=== PATIENT | female | born 1960 | race Caucasian/White ===

== ENCOUNTER 2016-08-08 17:22 | Observation (INO) | payer BC ==
--- NOTE | ~2016-08-08 | HP ---
History And Physical [place] [id number] [facility] [place]. [address] NAME: SANTO PINZON : 56 STATUS : ADM Lana PAT#: [id number] AGE: 56 ADM/REG DATE : 08/08/16 MR#: [id number] REPORT SERV DATE: 08/09/16 DICTATED BY: NELLIE ART DATE: 08/09/16 REPORT STATUS : Draft TRANSCRIBED BY: MODL DATE: 08/09/16 DATE OF ADMISSION: 08/08/2016 CHIEF COMPLAINT: Chest tightness. HISTORY OF PRESENT ILLNESS: A very pleasant, 56-year-old white female with no known history of CAD, reports two days of episodic chest pain, described as a tightness. 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 Again, she describes it as a chest tightness. She rates it as a 3/10 to 4/10. It has been relieved but at time of interview in the [facility], she reports that it is a 4/10 but better. The episodes last seconds in duration. There is some associated shortness of breath and nausea. Denies any diaphoresis, dizziness, or belching. The patient denies any personal history of myocardial infarction, stroke, DVT, or pulmonary embolus. The patient denies any recent fever or chills, no palpitations, no syncopal episodes. Denies PND or orthopnea. PAST MEDICAL HISTORY: 1. Hypertension. 2. History of cystitis. 3. Cholesterol followed by PCP. 4. Denies diabetes. 5. Positive family history for early CAD. PAST SURGICAL HISTORY: Hysterectomy. SOCIAL HISTORY: She is single. Does not have any children. She is unemployed, on disability. Does not have an exercise routine. Denies tobacco, alcohol, or illicits. FAMILY HISTORY: Father with a heart attack in his 50s; at the age of 82. REVIEW OF SYSTEMS: A 14-point review of systems performed, significant for HPI. No other contributory diagnoses identified. ALLERGIES: TO PENICILLIN, RASH. OPIOIDS, NAUSEA AND VOMITING. CODEINE, NAUSEA AND VOMITING. HOME MEDICATIONS: Gabapentin 100 mg three times daily, losartan 50 mg daily, Elmiron caps 100 mg three times daily. PHYSICAL EXAMINATION: VITAL SIGNS: Blood pressure 145/69, pulse 57, respirations 16, temperature 97.4, O2 saturation 98% on room air. Height 5 feet 7 inches. Weight 170 pounds. BMI 27. GENERAL: Cooperative, in no apparent distress. History And Physical [address] [address] NAME: SANTO PINZON : 56 STATUS : ADM Lana PAT#: [id number] AGE: 56 ADM/REG DATE : 08/08/16 MR#: [id number] REPORT SERV DATE: 08/09/16 DICTATED BY: NELLIE ART DATE: 08/09/16 REPORT STATUS : Draft TRANSCRIBED BY: MODL DATE: 08/09/16 HEENT: Pupils 2 mm, sclerae nonicteric. Nares patent. Moist mucous membranes. No xanthelasma. NECK: Trachea midline, no thyromegaly. No JVD. No bruits. LYMPH: No cervical lymphadenopathy. No supraclavicular lymphadenopathy. RESPIRATORY: Unlabored respirations. Breath sounds clear bilaterally to posterior auscultation. No wheezes or rhonchi. CARDIOVASCULAR: Regular rate. No murmur, rub or gallop appreciated. Extremities without edema. Pulses 2+ bilaterally. ABDOMEN: Soft, nontender, nondistended, normal bowel sounds auscultated throughout. No organomegaly. SKIN: Warm, dry extremities. No pallor, or cyanosis. PSYCHIATRIC: Appropriate affect. Alert, oriented x3. LABORATORY DATA: Troponin less than 0.02 x3. Potassium 4.2, BUN 13, creatinine 0.67, glucose 104, magnesium 2.1. WBC 6.0, hemoglobin 12.1, hematocrit 37.1, platelet count 224,000. EKG sinus rhythm. Nonspecific lateral T-waves. MPI 12/2014: Ousmane stage 2, 4.57 minutes, 7 METs, no ischemia. ASSESSMENT AND PLAN: 1. Chest pain with atypical features. The patient has been observed in our facility to rule out myocardial infarction per protocol and held n.p.o. We will proceed with MPI today. The patient will be discharged home if low risk, no ischemia. If anything suggestive of ischemia, Cardiology referral will be initiated. Otherwise, the patient will be asked to follow up with PCP in one to two weeks with all studies being sent to that office. 2. Hypertension. Monitor blood pressure. Continue home medications. JULIAN/ABELINO DIANE Holt, FAN MAIL EDITOR-BC / [id number] CC: DIANE Holt, FAN MAIL EDITOR-BC Jj Patterson M.D.
[2016-08-08 18:31] LABS: BASOPHILS 0.3 %; BASOPHILS ABSOLUTE 0.02 10/3/uL (0.0-0.16); EOSINOPHILS 0.5 %; EOSINOPHILS ABSOLUTE 0.03 10/3/uL (0.0-0.53); ER CBC TAT 0 Hrs 07 Mins; HEMATOCRIT 37.1 % (36.0-48.0); HEMOGLOBIN 12.1 g/dL (12.0-16.0); IMMATURE GRANULOCYTES 0.2 %; IMMATURE GRANULOCYTES ABSOLUTE 0.01 10/3/uL (0.0-0.11); MEAN CORPUS HGB CONC 32.6 g/dL (32.0-36.0); MEAN CORPUSCULAR HEMOGLOB 28.3 pg (26.0-34.0); MEAN CORPUSCULAR VOLUME 86.9 fL (80-100); MONOCYTES 9.2 %; MONOCYTES ABSOLUTE 0.55 10/3/uL (0.21-1.20); NEUTROPHILS 74.8 %; PLATELET COUNT 224 10/3/uL (150-400); RBC DISTRIBUTION WIDTH 13.5 % (12.0-16.0); RED CELL COUNT 4.27 10/6/uL (4.0-5.6)
[2016-08-08 18:32] LABS: MANUAL DIFF NO %
[2016-08-08 18:46] LABS: BUN (BLOOD UREA NITROGEN) 13 MG/DL (6-23); CALCIUM, SERUM 8.5 MG/DL (8.5-10.4); CHEST PAIN PROFILE TAT 0 Hrs 22 Mins; CHLORIDE, SERUM 108 MMOL/L (96-112); CO2 (CARBON DIOXIDE) 26 MMOL/L (24-34); CREATININE 0.67 MG/DL (0.55-1.02); GFR AFRICAN AMERICAN 112 ML/MIN (>=60); GFR NON AFRICAN AMERICAN 97 ML/MIN (>=60); GLUCOSE, SERUM 104 MG/DL (60-99); POTASSIUM, SERUM 4.2 MMOL/L (3.5-5.3); SODIUM, SERUM 142 MMOL/L (135-148); TROPONIN I <0.02 NG/ML (<0.05)
[2016-08-08 18:54] LABS: PARTIAL THROMBO TIME 26.7 SEC (22.5-37.2)
[2016-08-08] MEDS ORDERED: COZAAR100 MG PO (19:11)
[2016-08-08] MEDS ORDERED: NEUR100 PO (19:11)
[2016-08-08] MEDS ORDERED: ELMIRON100 MG PO (19:12)
[2016-08-09 01:27] LABS: TROPONIN I <0.02 NG/ML (<0.05)
[2016-08-09 14:24] LABS: ASCORBIC ACID (UR NOT ORDER) NEG (NEG); BILIRUBIN, URINE NEGATIVE (NEG); KETONE, URINE NEGATIVE (NEG); LEUKOCYTE ESTERASE(NOT OR TRACE (NEG); WBC (NOT ORDERED) (RFLEX) 3 (0-5)
[2016-08-09 17:26] LABS: BASOPHILS 0.2 %; BASOPHILS ABSOLUTE 0.01 10/3/uL (0.0-0.16); EOSINOPHILS 0 %; HEMATOCRIT 33.9 % (36.0-48.0); HEMOGLOBIN 10.8 g/dL (12.0-16.0); IMMATURE GRANULOCYTES 0.2 %; IMMATURE GRANULOCYTES ABSOLUTE 0.01 10/3/uL (0.0-0.11); LYMPHOCYTES 9.2 %; LYMPHOCYTES ABSOLUTE 0.47 10/3/uL (0.67-4.30); MEAN CORPUS HGB CONC 31.9 g/dL (32.0-36.0); MEAN CORPUSCULAR HEMOGLOB 27.7 pg (26.0-34.0); MEAN CORPUSCULAR VOLUME 86.9 fL (80-100); MEAN PLATELET VOLUME 11.2 fL (9.2-13.0); MONOCYTES 3.3 %; MONOCYTES ABSOLUTE 0.17 10/3/uL (0.21-1.20); NEUTROPHILS 87.1 %; NEUTROPHILS ABSOLUTE 4.44 10/3/uL (2.02-8.40); PLATELET COUNT 203 10/3/uL (150-400); RBC DISTRIBUTION WIDTH 13.8 % (12.0-16.0); WHITE BLOOD CELLS 5.1 10/3/uL (4.5-10.5)
[2016-08-09 17:27] LABS: MANUAL DIFF NO %
[2016-08-09 17:48] LABS: ALBUMIN 2.8 G/DL (3.5-5.0); ALKALINE PHOSPHATASE 67 U/L (45-117); BUN (BLOOD UREA NITROGEN) 14 MG/DL (6-23); CALCIUM, SERUM 6.8 MG/DL (8.5-10.4); CHLORIDE, SERUM 101 MMOL/L (96-112); CO2 (CARBON DIOXIDE) 22 MMOL/L (24-34); CREATININE 0.48 MG/DL (0.55-1.02); GFR AFRICAN AMERICAN 125 ML/MIN (>=60); GFR NON AFRICAN AMERICAN 108 ML/MIN (>=60); GLOBULIN 2.7 G/DL (2.5-4.1); GLUCOSE, SERUM 96 MG/DL (60-99); POTASSIUM, SERUM 3.6 MMOL/L (3.5-5.3); SGOT(AST) 14 U/L (5-40); SGPT(ALT) 20 U/L (5-65); SODIUM, SERUM 133 MMOL/L (135-148); TOTAL BILIRUBIN 0.6 MG/DL (0-1.2); TOTAL PROTEIN 5.5 G/DL (6.0-8.5)
[2016-08-10 05:16] LABS: BASOPHILS 0.2 %; BASOPHILS ABSOLUTE 0.01 10/3/uL (0.0-0.16); EOSINOPHILS ABSOLUTE 0.05 10/3/uL (0.0-0.53); HEMATOCRIT 37.1 % (36.0-48.0); HEMOGLOBIN 12.3 g/dL (12.0-16.0); IMMATURE GRANULOCYTES 0.2 %; IMMATURE GRANULOCYTES ABSOLUTE 0.01 10/3/uL (0.0-0.11); LYMPHOCYTES 24.3 %; LYMPHOCYTES ABSOLUTE 1.24 10/3/uL (0.67-4.30); MEAN CORPUS HGB CONC 33.2 g/dL (32.0-36.0); MEAN CORPUSCULAR HEMOGLOB 28.9 pg (26.0-34.0); MEAN CORPUSCULAR VOLUME 87.3 fL (80-100); MEAN PLATELET VOLUME 11.1 fL (9.2-13.0); MONOCYTES ABSOLUTE 0.51 10/3/uL (0.21-1.20); NEUTROPHILS 64.3 %; NEUTROPHILS ABSOLUTE 3.29 10/3/uL (2.02-8.40); PLATELET COUNT 240 10/3/uL (150-400); RBC DISTRIBUTION WIDTH 13.5 % (12.0-16.0); RED CELL COUNT 4.25 10/6/uL (4.0-5.6); WHITE BLOOD CELLS 5.1 10/3/uL (4.5-10.5)
[2016-08-10 05:28] LABS: MANUAL DIFF NO %
[2016-08-10 09:38] LABS: BUN (BLOOD UREA NITROGEN) 15 MG/DL (6-23); CHLORIDE, SERUM 108 MMOL/L (96-112); CO2 (CARBON DIOXIDE) 25 MMOL/L (24-34); CREATININE 0.63 MG/DL (0.55-1.02); GFR AFRICAN AMERICAN 115 ML/MIN (>=60); GFR NON AFRICAN AMERICAN 99 ML/MIN (>=60); GLUCOSE, SERUM 99 MG/DL (60-99)
[2016-08-10 09:39] LABS: CALCIUM, SERUM 8.4 MG/DL (8.5-10.4); SODIUM, SERUM 143 MMOL/L (135-148)
[2016-10-08] MEDS ORDERED: NORV5 PO (10:29)
[2016-10-08] MEDS ORDERED: ASAB PO (10:30)
[2016-10-08] MEDS ORDERED: COREG3 PO (10:30)
== END 2016-08-10 11:45 | disposition home or self-care (01) ==
LOC: ER 17:22 → SSU1 19:34
PROVIDERS: Clinical Nurse Specialist; Internal Medicine; Nurse Practitioner
DX: R07.89 Other chest pain (principal); G43.909 Migraine, unspecified, not intractable, without status migrainosus; I10 Essential (primary) hypertension; Z90.710 Acquired absence of both cervix and uterus; Z88.0 Allergy status to penicillin; Z88.5 Allergy status to narcotic agent; Z79.899 Other long term (current) drug therapy
CPT/HCPCS: 71010; 74150; 80048; 80053; 81001; 82150; 82330; 83690; 83735; 84443; 84484; 85025; 85610; 85730; 93005; 96374; 96375; 96376; 99285; A9270-GY; A9502; C9113; G0378; J1885; J2405; J2550